=== PATIENT | female | born 1970 | race American Indian/Alaskan Native ===

== ENCOUNTER 2017-11-20 13:32 | Outpatient (CLI) | payer BC ==
--- NOTE | 2017-11-20 15:47 | Mammography Report ---
Bilateral digital screening mammogram with CAD. Comparison study is dated August 23, 2014. Findings: The breasts are heterogeneously dense. In the upper outer quadrant of the left breast, a grouping of microcalcifications has increased in number and needs further evaluation. A grouping of microcalcifications in the upper outer right breast are unchanged. No architectural distortion or other suspicious findings are seen. Impression: Left microcalcifications which need further evaluation. BI-RADS code: 0. Recommendation: Spot magnification images.
== END 2017-11-20 13:33 | disposition home or self-care (01) ==
LOC: MAMMO 13:32
PROVIDERS: ATTEND Obstetrics & Gynecology
DX: Z12.31 Encounter for screening mammogram for malignant neoplasm of breast (principal)
CPT/HCPCS: 77067; G0202

== ENCOUNTER 2017-12-09 10:16 | Outpatient (CLI) | payer BC ==
--- NOTE | 2017-12-09 14:48 | Mammography Report ---
LEFT DIGITAL DIAGNOSTIC MAMMOGRAM : 12/09/17 10:16:00 CLINICAL: Recall to evaluate calcifications. COMPARISON:11/20/17 screening FINDINGS: ML and CC spot magnification views were performed. A group of upper outer amorphous calcifications is suspicious because of linear and branching distribution. More scattered punctate calcifications in the lower breast had no suspicious features. IMPRESSION: A group of suspicious upper-outer calcifications. Recommend stereotactic biopsy. BI-RADS CATEGORY: 4--Suspicious The patient was informed by the technologist of the recommendation for stereotactic biopsy of the left breast. ACR BI-RADS MAMMOGRAPHIC CODES: 0 = Needs additional imaging evaluation; 1 = Negative; 2 = Benign; 3 = Probably benign; 4 = Suspicious; 5 = Malignant; 6 = Known biopsy-proven malignancy COMMENT: 1. Dense breast tissue, i.e., adenosis, fibrocystic changes, etc., may obscure an underlying neoplasm. 2. Approximately 10% of cancers are not detected with mammography. 3. A negative mammography report should not delay biopsy if a clinically suspicious mass is present. COMMENT: Patient follow-up letters are generated via our [employer] application.
== END 2017-12-09 10:17 | disposition home or self-care (01) ==
LOC: MAMMO 10:16
PROVIDERS: ATTEND Obstetrics & Gynecology
DX: R92.1 Mammographic calcification found on diagnostic imaging of breast (principal)

== ENCOUNTER 2017-12-27 12:38 | Outpatient (CLI) | payer BC ==
--- NOTE | 2017-12-27 16:03 | Mammography Report ---
STEREOTACTIC VACUUM ASSISTED BIOPSY WITH CLIP PLACEMENT LEFT BREAST: 12/27/17 12:38:00 CLINICAL: Calcifications. COMPARISON:12/09/17 mammogram FINDINGS: Consent for the procedure was obtained. The upper outer were targeted with stereotactic guidance. The skin was prepped with Betadine and anesthetized with 1% lidocaine. 2% lidocaine with epinephrine was injected for deeper anesthesia. 8 gauge Mammotome biopsy was performed from a approach through a small dermatotomy. Prefire and post-fire images demonstrated satisfactory positioning of the probe. Samples were obtained around the clock face. An initial specimen radiograph fail to confirm removal of public service representative calcifications. Additional samples were obtained and a second specimen radiograph was obtained. It also fail to confirm removal of calcifications. A clip was placed at the biopsy site and the placement was confirmed with a radiograph. The probe was removed and hemostasis was achieved with mild pressure. A sterile dressing was applied. The patient tolerated the procedure well and there were no apparent complications. Two view mammogram demonstrated concordant position of the biopsy clip. IMPRESSION: Uncomplicated stereotactic biopsy with clip placement left breast.Although it appears that this biopsy may have been unsuccessful since no calcifications are identified in the specimen, I will reserve judgment until the pathology is reviewed.
--- NOTE | 2017-12-27 16:04 | Mammography Report ---
LEFT DIGITAL DIAGNOSTIC MAMMOGRAM: 12/27/17 12:38:00 CLINICAL: For clip placement immediately status post stereotactic biopsy. COMPARISON:12/09/17 FINDINGS: A biopsy clip is now identified in the upper outer quadrant and the position is concordant with previously described calcifications. A small hematoma with air is identified at the clip. IMPRESSION: Concordant clip placement status post stereotactic biopsy. BI-RADS CATEGORY: 4--Suspicious Pathology pending.
== END 2017-12-27 12:39 | disposition home or self-care (01) ==
LOC: SPVWC 12:38
PROVIDERS: ATTEND Obstetrics & Gynecology
DX: D24.2 Benign neoplasm of left breast (principal)
CPT/HCPCS: 19081; 77065; 88305; A4648

== ENCOUNTER 2019-02-03 09:04 | Outpatient (CLI) | payer BC ==
--- NOTE | 2019-02-03 16:08 | Mammography Report ---
BILATERAL DIGITAL SCREENING MAMMOGRAM with CAD : 02/03/19 09:04:00 CLINICAL: Routine screening.Status post left benign stereotactic biopsy for calcifications 12/27/17. No calcifications were identified in the specimen radiographs. COMPARISON:12/09/17 and 11/20/17 mammograms FINDINGS: The breasts are heterogeneously dense, which may obscure small masses.A left upper outer biopsy clip and fewer calcifications near the clip than on prior exams. No suspicious calcifications. Additional scattered benign calcifications. No mass, architectural distortion or suspicious calcifications. IMPRESSION: No mammographic evidence of malignancy. BI-RADS CATEGORY: 2 -- Benign RECOMMENDATION: Routine mammographic screening in one year. COMMENT: Patient follow-up letters are generated by our [employer] application.
== END 2019-02-03 09:05 | disposition home or self-care (01) ==
LOC: SPVWC 09:04
PROVIDERS: ATTEND Obstetrics & Gynecology
DX: Z12.31 Encounter for screening mammogram for malignant neoplasm of breast (principal)
CPT/HCPCS: 77067